=== PATIENT | female | born 1940 | race Caucasian/White ===

== ENCOUNTER 2022-07-25 11:08 | Inpatient (IN) | payer MEDICARE ==
[2022-07-23 11:20] VITALS: BMI 24.2
[~2022-07-25 11:08] MED LIST: ACETAMINOPHEN TAB 500 MG TAB PO PRN; DEXAMETHASONE SOD PHOSPHATE 10 MG/ML 1 ML VIAL IV PRN; DOCUSATE 100 MG CAP PO PRN; FAMOTIDINE 20 MG/2 ML VIAL IVP PRN; HYDROmorphone 0.5 MG/0.5 ML SYRINGE IVP PRN; KETOROLAC 15 MG/ML 1 ML VIAL IVP PRN; LIDOCAINE 1% (10MG/ML) FOR IV START INTRADERMA PRN; ONDANSETRON 4 MG/2 ML VIAL IVP PRN; TRANEXAMIC ACID IN NACL,ISO-OS 1,000 MG in SALINE 1 100ML.BAG IV PRN; TRANEXAMIC ACID IN NACL,ISO-OS 1,000 MG in SALINE 1 100ML.BAG IVPB PRN; oxyCODONE ER 10 MG TAB.ER.12H PO PRN
[2022-07-25] MEDS: LACTATED RINGERS 1,000 ML IV SCH ×2 (12:22→21:31)
[2022-07-25 12:28] LABS: Glucose,Whole Blood 115 mg/dL (70-110)
[2022-07-25] MEDS ORDERED: MIDAZOLAM 2 MG/2 ML VIAL IVP ONE (12:44)
[2022-07-25] MEDS ORDERED: fentaNYL (PF) 50 MCG/ML 2 ML AMP IVP ONE (12:44)
[2022-07-25] MEDS ORDERED: ONDANSETRON 4 MG/2 ML VIAL ONE (13:10)
[2022-07-25] MEDS ORDERED: LIDOCAINE 2% INJ 20 MG/ML (2 ML VIAL) ONE (13:39)
[2022-07-25] MEDS ORDERED: PROPOFOL 10 MG/ML 20 ML VIAL IV ONE (13:39)
[2022-07-25] MEDS ORDERED: ROCURONIUM 10 MG/ML (5 ML VIAL) IV ONE (13:39)
[2022-07-25] MEDS ORDERED: NEOSTIGMINE 1 MG/ML 10 ML VIAL ONE (13:39)
[2022-07-25] MEDS ORDERED: ROPIVACAINE 5 MG/ML 30 ML VIAL ONE (13:39)
[2022-07-25] MEDS ORDERED: HYDROmorphone (PF) 1 MG/ML ONE (13:39)
[2022-07-25] MEDS ORDERED: fentaNYL (PF) 50 MCG/ML 2 ML AMP ONE (13:39)
[2022-07-25] MEDS ORDERED: SODIUM CHLORIDE 0.9% (PF) 10 ML VIAL ONE (13:39)
[2022-07-25] MEDS ORDERED: ePHEDrine 50 MG/ML 1 ML VIAL ONE (13:39)
[2022-07-25] MEDS ORDERED: GLYCOPYRROLATE 0.2 MG/ML 2 ML VIAL ONE (13:39)
[2022-07-25] MEDS ORDERED: SUCCINYLCHOLINE CHLORIDE 200 MG/10 ML VIAL IV ONE (13:39)
[2022-07-25] MEDS: ROPIVACAINE 246.25 MG, EPINEPHrine 0.5 MG, KETOROLAC (30 mg/mL) 30 MG, cloNIDine HCL/PF... MISCELLANE PRN ×10 (14:18→15:24)
--- NOTE | 2022-07-25 14:19 | P.ANPRN ---
Procedure Note - Anesthesia - Nerve Block Performed Right Doroteo Time Out Performed: Yes (12:44) Date of Procedure: 07/25/22 Procedure Start Time: :44 Procedure Stop Time: 12:49 Location of Patient: PreOp Indication: Acute Post-Operative Pain, Requested by Surgeon (Dr Todd) Sedation Type: Sedate with meaningful contact maintained Preparation: Sterile Prep Position: Supine Catheter: None Needle Types: Pajunk Needle Gauge: 21 Ultrasound used to visualize needle placement: Yes Ultrasound used to observe medication spread: Yes Injectate: 0.5% Ropivacaine (see comment for volume) (20cc + 5cc PF normal saline) Pain Paresthesia on Injection Noted: No Resistance on Injection: Normal Events: Uneventful and Well Tolerated
[2022-07-25] MEDS ORDERED: LACTATED RINGERS 1,000 ML IV ONE ×2 (14:30)
--- NOTE | 2022-07-25 16:10 | XR ---
Intraoperative/procedural fluoroscopic services were provided for right total hip arthroplasty. Total fluoroscopy time is 25.8 seconds with a total of 6 submitted images to PACS. Total DAP 0.7091 Gycm2. Please see the operative note for further details.
[2022-07-25] MEDS ORDERED: ONDANSETRON 4 MG/2 ML VIAL IVP PRN (16:11)
[2022-07-25] MEDS ORDERED: hydrOXYzine pamoate 25 MG CAP PO PRN (16:11)
[2022-07-25] MEDS ORDERED: HYDROcodone/APAP 5-325MG 1 EACH TAB PO PRN (16:11)
[2022-07-25] MEDS ORDERED: NALOXONE 0.4 MG/ML 1 ML VIAL IV PRN (16:11)
[2022-07-25] MEDS ORDERED: HYDROmorphone 0.5 MG/0.5 ML SYRINGE IVP PRN ×3 (16:11)
--- NOTE | 2022-07-25 16:12 | P.OP ---
Date of Procedure: 07/25/22 Preoperative Diagnosis: 1. Severe right hip osteoarthritis Postoperative Diagnosis: Same Procedure(s) Performed: Right direct anterior total hip arthroplasty Implants: 1. Hibbs Trident II Acetabular Cup, Size #48 2. Steve Accolade C Size #5 Femoral Stem, Standard Offset 3. Biolox delta femoral head, 36 mm, - 2.5 neck Anesthesia: GETA, regional Surgeon: Dae Todd Template Fitter #1: Jessie Aviles Estimated Blood Loss (ml): 500 IV fluids (ml): 1,200 Pathology: none sent Condition: stable Disposition: PACU Indications for Procedure: I had a long discussion with the patient in the office on the potential risks and complications of an elective total hip replacement through a direct anterior approach. Risks discussed include, but are certainly not limited to, risks from anesthesia, superficial infection requiring local wound care or antibiotics, deep philippe-prosthetic joint infection and the treatment required to eradicate infection, intraoperative fracture, postoperative periprosthetic fracture, damage to local blood vessels or nerves particularly the lateral femoral cutaneous nerve, delayed wound healing requiring local wound care or possibly surgical debridement, hip dislocation, leg length discrepancy, soft tissue irritation around the total hip implant such as iliopsoas tendinitis or trochanteric bursitis, wear and osteolysis from the implants, squeaking or audible noises, groin pain, thigh pain, heterotopic ossification, stiffness, aseptic loosening of the implants, dissatisfaction with surgical outcome, need for revision surgery, DVT, PE, swelling of the operative extremity, acute coronary event, stroke, failure to thrive, and possibly loss of life or limb. The patient understands that while these are the most common complications after an elective hip replacement there are certainly other less common complications possible. They were given ample time to ask questions regarding the potential complications of a hip replacement. Following our discussion the patient provided their verbal and written consent to go forward with an elective total hip replacement. Operative Findings: Severe right hip arthritis Description of Procedure: The patient was identified in the preoperative holding area and the correct hip was marked with my initials. I reviewed the procedure and consent with the patient. All of their questions were answered. The patient was then brought back into the operating room by anesthesia. While on the [facility] anesthesia was administered by the anesthesia team. Preoperative antibiotics and tranexamic acid were also given. After the patient was under anesthesia I examined their ankles to determine their preoperative leg length discrepancy. The skin over the anterior aspect of the hip was shaved to remove hair over the site of planned incision. Both feet and ankles were padded with webril and boots for the [place] were applied. The patient was then carefully transferred onto the [place] table. A perineal post was immediately placed. The arms were placed on arm holders and were well-padded. Both boots were secured to the spars on the [place] table. The patient was positioned so that the pelvis was centered over the post. Nonsterile drapes were applied. A timeout was performed identifying the correct patient, operative extremity, and procedure. At this point fluoroscopy was brought in to take preoperative images of the pelvis and operative hip. Using the standing AP pelvis from the office as a template, a comparable image was obtained with fluoroscopy. A metallic bar was used to create a bi-ischial line for use as a reference to leg length adjustments during the procedure. Global offset was also measured on both the operative and nonoperative leg. Fluoroscopy was then brought out and a pre-scrub using a chlorhexidine scrub brush was performed. The operative limb was then prepped and draped in the standard sterile fashion. An anterior longitudinal incision was made lateral and distal to the ASIS. The skin and subcutaneous tissues were incised sharply. The underlying tensor fascia was identified and incised in its midportion. The fascia was dissected free from the underlying muscle and the muscle belly was retracted. A blunt tipped cobra retractor was placed over the superior neck under the muscle fibers of the gluteus minimus. The deep enveloping fascia of the tensor was incised. The anterior leash of vessels were then identified and cauterized. The fascia between the rectus and the capsule was then incised and the pre-capsular fat was excised. A second Cobra was placed inferior to the neck. The interval between the rectus and iliocapsularis and the hip capsule was developed and a retractor was placed carefully over the anterior rim of the acetabulum. A T-shaped anterior capsulotomy was performed. The superior capsular leaflet was left in place in the inferior capsular flap was excised. The Cobra retractors were placed intracapsularly. We then made a femoral neck osteotomy according to preoperative and intraoperative templating and confirmed the level of the osteotomy using fluoroscopic imaging. The femoral head was removed, passed off to the back table, and sized. The superior capsular flap was excised. Retractors were placed circumferentially exposing the acetabulum. We then circumferentially debrided the acetabulum free of labrum and osteophytes. The pulvinar was removed to fully visualize the cotyloid fossa. We then sequentially reamed to achieve peripheral fit and excellent bleeding subchondral bone. The socket was thoroughly irrigated. The acetabular component was impacted into the appropriate position using fluoroscopy to guide version, inclination, and depth of insertion taking care to have a comparable image of the AP pelvis to the standing image taken in the office. An excellent press-fit was achieved and final position was confirmed using fluoroscopy. The press fit was augmented with bony cancellus dome screws. The liner was then impacted into the socket. Attention was then turned to the femur. The remnant dorsal lateral capsule was excised. The short external rotators were visible and protected. A bone hook was used to confirm appropriate translation of the trochanter away from the acetabulum. The leg was then extended and adducted and the bone hook was used to elevate the femur for broaching. On inspection of the patient's proximal femur, they appeared to have poor bone quality so I elected to proceed with cemented fixation of the femoral component. A box osteotome and blunt tipped canal sound was then utilized to gain access to the femoral canal. We then sequentially broached the femur in appropriate anteversion until torsional stability was achieved and the implant was felt to have reached the appropriate size to allow trialing. The neck cut was brought flush to the trial broach with a calcar planar. A trial neck and head were then placed onto the broach and the hip was atraumatically reduced under direct visualization. External rotation to 90 was performed to assess stability. Fluoroscopy was brought in. An AP and lateral fluoroscopic image of the proximal femur was obtained to assess position and fill of the trial broach. An AP of the pelvis was then obtained and matched to the preoperative image taken. A bi-ischial bar was then placed and measurements were taken to assess changes in length and offset. The hip was then carefully dislocated, the proximal femur was exposed, and the trial implants were removed. The proximal femur was then prepared for cementing. The canal was thoroughly irrigated with pulsatile lavage to remove blood and marrow contents. A cement restrictor was placed to a depth just distal to the tip of the final implant. Epinephrine-soaked gauze was then packed into the proximal femur. 2 bags of cement were then mixed using a centrifuge and placed into a cement gun. Anesthesia was notified that cementing was about to commence to make sure the patient was appropriately ventilated and hydrated. Once the cement had reached appropriate consistency, the cement gun was used to fill the canal in a retrograde fashion starting at the restrictor. Cement was then pressurized into the canal with a blue tipped painter foreman. The stem was then carefully introduced into the cement taking care to guide the implant into appropriate version. The stem was held in position until the cement had fully set. All extra cement was removed while the cement was hardening. The trunnion was cleansed and the final head was tapped into place to engage the Levy taper. The acetabulum was irrigated and visualized to be free of debris. The hip was carefully reduced. Stability was checked clinically with external rotation to 90 and there was no evidence of instability. Final fluoroscopic images were taken. The wound was then thoroughly irrigated with Irricept and allowed to soak for 3 minutes. 3 L of sterile saline was irrigated through the wound using pulsatile lavage. Local anesthetic cocktail was injected into the soft tissues around the surgical field. A deep drain was placed. The wound was then closed in layers. A sterile dressing was placed over the surgical incision and drain site. The drapes were taken down and the patient was carefully transferred off of the [place] table. Following removal of the boots the leg lengths felt acceptable. The patient was then taken to recovery room having tolerated the procedure well. Jessie Aviles PA-C was required as a skilled malt specifications control assistant for patient positioning, surgical exposure, retraction, placement of implants, and closure of the surgical wound. PLAN: The patient can weight-bear as tolerated on the operative extremity. 2 doses of postoperative antibiotics. DVT prophylaxis with aspirin 81 mg twice a day based on preoperative risk stratification. Physical therapy for gait training. Discontinue drain postoperative day #1 if output is less than 100 mL per shift.
[2022-07-25 17:31] LABS: Glucose,Whole Blood 202 mg/dL (70-110)
[2022-07-25] MEDS: ASPIRIN 81 MG PO SCH (20:19)
[2022-07-25] MEDS: SENNOSIDES-DOCUSATE SODIUM 1 EACH TAB PO SCH (20:19)
[2022-07-25 20:53] LABS: Glucose,Whole Blood 227 mg/dL (70-110)
[2022-07-26] MEDS: LACTATED RINGERS 1,000 ML IV SCH ×4 (01:30→23:23)
[2022-07-26 06:18] LABS: Glucose,Whole Blood 213 mg/dL (70-110)
[2022-07-26] MEDS: HYDROcodone/APAP 5-325MG 1 EACH TAB PO PRN ×2 (06:31→14:18)
[2022-07-26] MEDS: ASPIRIN 81 MG PO SCH ×2 (07:32→21:05)
[2022-07-26] MEDS ORDERED: DEXTROSE 50% SYRINGE 50 ML IVP PRN ×2 (07:40)
[2022-07-26 08:19] LABS: African American GFR (CKD) >90 (>60 ml/min/1.73 sqM); Anion Gap 12 mmol/L; Blood Urea Nitrogen 19 mg/dL (7-17); Calcium 8.5 mg/dL (8.4-10.2); Carbon Dioxide 23 mmol/L (22-30); Chloride 102 mmol/L (98-107); Glucose 202 mg/dL (74-99); Non-African American GFR(CKD) 80 (>60 ml/min/1.73 sqM); Sodium 137 mmol/L (137-145)
[2022-07-26] MEDS: POTASSIUM CHLORIDE ER 10 MEQ TAB.ER.PRT PO SCH ×2 (08:33→21:05)
[2022-07-26] MEDS: FAMOTIDINE 20 MG TAB PO SCH (08:33)
[2022-07-26 11:08] LABS: Basophils # (A) 0.03 X 10*3/uL (0.00-0.10); Basophils % (A) 0.2 %; Eosinophils # (A) 0 X 10*3/uL (0.04-0.35); Eosinophils % (A) 0 %; HCT 33.3 % (37.2-46.3); HGB 10.7 g/dL (12.0-15.0); Immature Grans, Automated 0.4 %; Lymphocytes # (A) 0.81 X 10*3/uL (0.90-5.00); Lymphocytes % (A) 6.1 %; MCH 30.4 pg (27.0-32.0); MCHC 32.1 g/dL (32.0-37.0); MCV 94.6 fL (80.0-97.0); Mean Platelet Volume 10.7 fL (9.5-12.2); Monocytes # (A) 0.96 X 10*3/uL (0.20-1.00); Monocytes % (A) 7.2 %; NRBC Per 100 WBC 0 /100 WBCS (0.0-0.0); Neutrophils % (A) 86.1 %; Platelet Count 278 X 10*3/uL (140-440); RBC 3.52 X 10*6/uL (4.10-5.20); RDW 13.2 % (11.5-14.5); WBC 13.36 X 10*3/uL (4.50-10.00)
[2022-07-26 11:40] LABS: Glucose,Whole Blood 152 mg/dL (70-110)
--- NOTE | 2022-07-26 13:08 | P.CONS ---
History of Present Illness - Reason for Consult Consult date: 07/26/22 - History of Present Illness This is an 82 year old female with medical history of hypertension, arthritis, myocardial infarction and heart catheterization with stenting. Patient underwent an elective right total hip arthroplasty with direct anterior approach secondary to severe right hip osteoarthritis. Patient is evaluated on the medical floor postoperative day #1. Blood pressure on the lower side at 95/58 at the lowest postoperative and has received IV fluids overnight with lactacted ringers at 100ml/hr. Blood pressure has improved to 120/66 this morning and recommending to continue holding patients home dose of amlodipine. Blood glucose has been in the 200s this hospitalization patient does not appear to be on any diabetic medications outpatient. Patient reports no history of diabetes and states they just told her due to the elevated blood sugars. There is no hemoglobin A1C available for review patient has been started on sliding scale insulin while inpatient and an A1C has been ordered. Patient is currently pending evaluation by physical therapy at this time. Likely will need subacute rehab. REVIEW OF SYSTEMS: CONSTITUTIONAL: No fever, no malaise, no fatigue. HEENT: No recent visual problems or hearing problems. Denied any sore throat. CARDIOVASCULAR: No chest pain, orthopnea, PND, no palpitations, no syncope. PULMONARY: No shortness of breath, no cough, no hemoptysis. GASTROINTESTINAL: No diarrhea, no nausea, no vomiting, no abdominal pain. NEUROLOGICAL: No headaches, no weakness, no numbness. HEMATOLOGICAL: Denies any bleeding or petechiae. GENITOURINARY: Denies any burning micturition, frequency, or urgency. MUSCULOSKELETAL/RHEUMATOLOGICAL: Denies any joint pain, swelling, or any muscle pain. ENDOCRINE: Denies any polyuria or polydipsia. The rest of the 14-point review of systems is negative. PHYSICAL EXAMINATION: GENERAL: The patient is alert and oriented x3, not in any acute distress. Well developed, well nourished. HEENT: Pupils are round and equally reacting to light. EOMI. No scleral icterus. No conjunctival pallor. Normocephalic, atraumatic. No pharyngeal erythema. No thyromegaly. CARDIOVASCULAR: S1 and S2 present. No murmurs, rubs, or gallops. PULMONARY: Chest is clear to auscultation, no wheezing or crackles. ABDOMEN: Soft, nontender, nondistended, normoactive bowel sounds. No palpable organomegaly. MUSCULOSKELETAL: No joint swelling or deformity. EXTREMITIES: No cyanosis, clubbing, or pedal edema. Post surgical right hip. dressing intact. NEUROLOGICAL: Gross neurological examination did not reveal any focal deficits. SKIN: No rashes. Assessment and Plan Hyperglycemia patient has been started on sliding scale insulin currently and he moglobin a1c is pending patient does not appear to be on any diabetic medication at home. History of hypertension currently low/normal and recommend to continue holding patients home medication amlodipine Hx of rheumatoid arthritis Severe osteoarthritis patient is postoperative day #1 right total hip arthroplasty History of myocardial infarction with prior cardiac stenting GI prophylaxis DVT prophylaxis as per primary Full Code Plan Patient likely will need to discharge on oral medication for the elevated blood glucose. Pending an A1C level, additionally amlodipine remains on hold. Continue IV fluids and recommending decreasing dose due to history of DC and stenting, there is no echocardiogram available for review patient does not have history of heart failure. Pending PT evaluation. DVT prophylaxis per orthopedic recommendations patient has been started on aspirin 81 mg BID. Recommend to continue bowel regimen and incentive spirometer 10 x an hour while awake. Thank you for this consultation. The impression and plan of care has been dictated by Mercedes Garcia Nurse Practitioner as directed. Dr. Juanito MD I have performed a history and physical examination and medical decision making of this patient, discussed the same with the dictator, and agree with the dictators assessment and plan as written, documented as a scribe. Based on total visit time, I have performed more than 50% of this visit. Past Medical History Past Medical History: Diabetes Mellitus, Hypertension, Myocardial Infarction (DC), Osteoarthritis (OA), Rheumatoid Arthritis (RA) Additional Past Medical History / Comment(s): BORDERLINE DM-DIET CONTROLLED. DOUNBLE VISION (HAD SHINGLES ON FACE AND AFFECTED EYES AND EARS). BLADDER PROLAPSE, URINARY INCONTINENCE-USES BRIEF Last Myocardial Infarction Date:: ABOUT 2018 History of Any Multi-Drug Resistant Organisms: None Reported Past Surgical History: Appendectomy, Heart Catheterization With Stent, Hysterectomy Additional Past Surgical History / Comment(s): SUZI. CATARACTS REMOVED. MULTIPLE EYE SURGERIES A CHILD Past Anesthesia/Blood Transfusion Reactions: No Reported Reaction Date of Last Stent Placement:: ABOUT 2018 Past Psychological History: No Psychological Hx Reported Smoking Status: Never smoker Past Alcohol Use History: None Reported Past Drug Use History: None Reported - Past Family History Mother Additional Family Medical History / Comment(s): AT 62 Son(s) Family Medical History: Rheumatoid Arthritis (RA) Medications and Allergies Home Medications Medication Instructions Recorded Confirmed Type Aspirin [Adult Low Dose Aspirin EC] 81 mg PO DAILY 07/23/22 07/23/22 History Ibuprofen 800 mg PO BID 07/23/22 07/23/22 History Potassium Chloride [K-Tab ER] 10 meq PO BID 07/23/22 07/25/22 History amLODIPine [Norvasc] 5 mg PO DAILY 07/23/22 07/25/22 History traMADol HCL 50 mg PO DAILY PRN 07/23/22 07/25/22 History HYDROcodone/APAP 5-325MG [[place] 1 - 2 tab PO Q6HR PRN 7 Days #32 07/26/22 Rx 5-325] tab Allergies Allergy/AdvReac Type Severity Reaction Status Date / Time adhesive Allergy BLISTERS Verified 07/25/22 11:58 iodine Allergy BLISTERS Verified 07/25/22 11:58 Penicillins Allergy Unknown Verified 07/25/22 11:58 mannitol [From Reclast] AdvReac POTASSIUM Verified 07/25/22 11:58 LOSS water for injection,sterile AdvReac POTASSIUM Verified 07/25/22 11:58 [From Reclast] LOSS zoledronic acid AdvReac POTASSIUM Verified 07/25/22 11:58 [From Reclast] LOSS Physical Exam Vitals: Vital Signs Temp Pulse Resp BP Pulse Ox 07/26/22 07:06 98.2 F 82 18 120/66 94 L 07/26/22 02:00 97.6 F 82 17 95/58 92 L 07/25/22 19:25 84 18 109/68 93 L 07/25/22 19:10 80 101/54 92 L 07/25/22 18:55 86 104/60 92 L 07/25/22 18:40 80 102/66 92 L 07/25/22 18:25 67 97/60 92 L 07/25/22 18:10 83 112/69 92 L 07/25/22 17:55 88 110/61 95 07/25/22 17:40 76 103/66 95 07/25/22 17:38 98.7 F 67 16 105/66 93 L 07/25/22 17:25 71 105/66 93 L 07/25/22 17:00 62 12 109/53 94 L 07/25/22 16:45 67 12 107/55 98 07/25/22 16:30 64 12 108/61 98 07/25/22 16:15 64 12 104/57 98 07/25/22 16:03 96.8 F L 83 12 137/66 98 07/25/22 12:50 59 L 16 115/61 98 07/25/22 12:00 97.9 F 18 157/67 99 Intake and Output 07/25/22 07/26/22 07/26/22 22:59 06:59 14:59 Intake Total 50 118 Output Total 500 60 Balance -450 -60 118 Intake: IV 50 Oral 118 Output: Drainage 60 Right Hip 60 Estimated Blood Loss 500 Other: # Voids 0 2 Weight 67 kg Results CBC & Chem 7: 07/26/22 06:33 07/26/22 06:33 Labs: Abnormal Lab Results - Last 24 Hours (Table) 07/25/22 07/25/22 07/25/22 Range/Units 12:13 17:31 20:51 BUN (7-17) mg/dL Glucose (74-99) mg/dL POC Glucose (mg/dL) 115 H 202 H 227 H (70-110) mg/dL 07/26/22 07/26/22 Range/Units 06:17 06:33 BUN 19 H (7-17) mg/dL Glucose 202 H (74-99) mg/dL POC Glucose (mg/dL) 213 H (70-110) mg/dL Assessment and Plan Time with Patient: Less than 30
[2022-07-26] MEDS ORDERED: IBUPROFEN 800 MG TAB PO PRN (15:11)
--- NOTE | 2022-07-26 15:16 | P.PN ---
Subjective Progress Note Date: 07/26/22 This patient is an 82- year old female who is status-post right direct anterior total hip arthroplasty on 07/25/22. Today is post-operative day #1. She is examined bedside. Patient states her pain is well controlled at this time. She is complaining of mild muscle cramps. Otherwise she is doing well. Vital signs stable. Objective - Vital Signs Vital signs: Vital Signs Temp 98.4 F 07/26/22 13:30 Pulse 78 07/26/22 13:30 Resp 19 07/26/22 13:30 BP 99/57 07/26/22 13:30 Pulse Ox 97 07/26/22 13:30 FiO2 Intake & Output 07/25/22 07/26/22 07/26/22 18:59 06:59 18:59 Intake Total 1800 236 Output Total 500 60 Balance 1300 -60 236 Weight 67 kg Intake: IV 1800 Oral 236 Output: Drainage 60 Right Hip 60 Estimated Blood Loss 500 Other: # Voids 0 2 - Exam On examination, patient is sitting up in bed in no apparent distress. She is alert and orientated x3. On inspection of the right hip, there is a clean, dry, intact surgical dressing in place. Hemovac drain removed bedside during exam. Mild swelling of the thigh, thigh is soft and compressible. Motor and sensory function intact RLE. Femoral nerve function intact. RLE warm and well perfused. - Labs CBC & Chem 7: 07/26/22 06:33 07/26/22 06:33 Labs: Abnormal Lab Results - Last 24 Hours (Table) 07/25/22 07/25/22 07/26/22 Range/Units 17:31 20:51 06:17 WBC (4.50-10.00) X 10*3/uL RBC (4.10-5.20) X 10*6/uL Hgb (12.0-15.0) g/dL Hct (37.2-46.3) % Immature Gran # (0.00-0.04) X 10*3/uL Neutrophils # (1.80-7.70) X 10*3/uL Lymphocytes # (0.90-5.00) X 10*3/uL Eosinophils # (0.04-0.35) X 10*3/uL BUN (7-17) mg/dL Glucose (74-99) mg/dL POC Glucose (mg/dL) 202 H 227 H 213 H (70-110) mg/dL 07/26/22 07/26/22 07/26/22 Range/Units 06:33 06:33 11:38 WBC 13.36 H (4.50-10.00) X 10*3/uL RBC 3.52 L (4.10-5.20) X 10*6/uL Hgb 10.7 L (12.0-15.0) g/dL Hct 33.3 L (37.2-46.3) % Immature Gran # 0.06 H (0.00-0.04) X 10*3/uL Neutrophils # 11.50 H (1.80-7.70) X 10*3/uL Lymphocytes # 0.81 L (0.90-5.00) X 10*3/uL Eosinophils # 0 L (0.04-0.35) X 10*3/uL BUN 19 H (7-17) mg/dL Glucose 202 H (74-99) mg/dL POC Glucose (mg/dL) 152 H (70-110) mg/dL Assessment and Plan Assessment: Status-post right direct anterior total hip arthroplasty on 07/25/22. Post-op day #1. Plan: - Weight bear to tolerance on operative extremity with a walker. - Physical therapy for gait and balance training. - Keep operative dressing in place. - Pain medication as needed. Motrin 800mg re-started. Flexeril added for muscle cramps. - 2 doses of post-op IV antibiotics complete. Patient will be started on doxycycline 100mg BID for wound healing prophylaxis. - Internal medicine for philippe-op medical management. - Case management consulted for discharge planning. Anticipate discharge to rehab when auth obtained.
[2022-07-26] MEDS: INSULIN ASPART (NovoLOG) 100 UNIT/ML VIAL SQ SCH ×3 (15:17→21:04)
[2022-07-26] MEDS: CYCLOBENZAPRINE 5 MG TAB PO PRN (15:20)
[2022-07-26 17:05] LABS: Glucose,Whole Blood 160 mg/dL (70-110)
[2022-07-26 21:03] LABS: Glucose,Whole Blood 121 mg/dL (70-110)
[2022-07-26] MEDS: SENNOSIDES-DOCUSATE SODIUM 1 EACH TAB PO SCH (21:05)
[2022-07-26] MEDS: DOXYCYCLINE 100 MG CAP PO SCH (21:05)
[2022-07-27] MEDS: CYCLOBENZAPRINE 5 MG TAB PO PRN ×3 (05:15→20:53)
[2022-07-27] MEDS: HYDROcodone/APAP 5-325MG 1 EACH TAB PO PRN ×3 (05:16→20:53)
[2022-07-27 06:36] LABS: Glucose,Whole Blood 145 mg/dL (70-110)
[2022-07-27] MEDS: INSULIN ASPART (NovoLOG) 100 UNIT/ML VIAL SQ SCH ×4 (07:29→20:53)
[2022-07-27] MEDS: ASPIRIN 81 MG PO SCH ×2 (08:16→20:53)
[2022-07-27] MEDS: POTASSIUM CHLORIDE ER 10 MEQ TAB.ER.PRT PO SCH ×2 (08:16→20:53)
[2022-07-27] MEDS: FAMOTIDINE 20 MG TAB PO SCH (08:16)
[2022-07-27] MEDS: DOXYCYCLINE 100 MG CAP PO SCH ×2 (08:16→20:52)
[2022-07-27] MEDS: LACTATED RINGERS 1,000 ML IV SCH ×3 (09:24→18:18)
[2022-07-27 11:39] LABS: Glucose,Whole Blood 136 mg/dL (70-110)
--- NOTE | 2022-07-27 14:56 | P.PN ---
Subjective Progress Note Date: 07/27/22 This patient is an 82- year old female who is status-post right direct anterior total hip arthroplasty on 07/25/22. Today is post-operative day #2. She is examined bedside. Per nursing patient was up to the bathroom herself today and felt a pop in her hip, with an increase of pain. Patient states she did not fall. Her muscle cramps have improved. No additional complaints. She is awaiting auth for rehab. Objective - Vital Signs Vital signs: Vital Signs Temp 99.6 F 07/27/22 13:45 Pulse 91 07/27/22 13:45 Resp 16 07/27/22 13:45 BP 99/64 07/27/22 13:45 Pulse Ox 91 L 07/27/22 13:45 FiO2 Intake & Output 07/26/22 07/27/22 07/27/22 18:59 06:59 18:59 Intake Total 236 Balance 236 Intake: Oral 236 Other: # Voids 2 4 - Exam On examination, patient is sitting up in bed in no apparent distress. She is alert and orientated x3. On inspection of the right hip, there is a clean, dry, intact surgical dressing in place. Mild swelling of the thigh, thigh is soft and compressible. Motor and sensory function intact RLE. Femoral nerve function in tact. RLE warm and well perfused. - Labs CBC & Chem 7: 07/26/22 06:33 07/26/22 06:33 Labs: Abnormal Lab Results - Last 24 Hours (Table) 07/26/22 07/26/22 07/26/22 Range/Units 06:33 17:04 21:02 POC Glucose (mg/dL) 160 H 121 H (70-110) mg/dL Hemoglobin A1c 7.1 H (0.0-6.0) % 07/27/22 07/27/22 Range/Units 06:34 11:37 POC Glucose (mg/dL) 145 H 136 H (70-110) mg/dL Hemoglobin A1c (0.0-6.0) % Assessment and Plan Assessment: Status-post right direct anterior total hip arthroplasty on 07/25/22. Post-op day #2. Plan: - Weight bear to tolerance on operative extremity with a walker. - Physical therapy for gait and balance training. - Keep operative dressing in place. - Pain medication as needed. Flexeril as needed for muscle cramps. - Continue doxycycline 100mg BID for wound healing prophylaxis. - Internal medicine for philippe-op medical management. - Case management consulted for discharge planning. Anticipate discharge to rehab when auth obtained.
--- NOTE | 2022-07-27 15:55 | P.PN ---
Subjective Progress Note Date: 07/27/22 This is an 82 year old female with medical history of hypertension, arthritis, myocardial infarction and heart catheterization with stenting. Patient underwent an elective right total hip arthroplasty with direct anterior approach secondary to severe right hip osteoarthritis. Patient is evaluated on the medical floor postoperative day #1. Blood pressure on the lower side at 95/58 at the lowest postoperative and has received IV fluids overnight with lactacted ringers at 100ml/hr. Blood pressure has improved to 120/66 this morning and recommending to continue holding patients home dose of amlodipine. Blood glucose has been in the 200s this hospitalization patient does not appear to be on any diabetic medications outpatient. Patient reports no history of diabetes and states they just told her due to the elevated blood sugars. There is no hemoglobin A1C available for review patient has been started on sliding scale insulin while inpatient and an A1C has been ordered. Patient is currently pending evaluation by physical therapy at this time. Likely will need subacute rehab. 07/27/2022 Patient is evaluated on medical floor sitting up in chair does not report much pain today to the right hip. Using only oral pain medications. Having some muscle cramping of the right thigh on muscle relaxers. No acute complaints no shortness of breath. Postoperative day #1 total right hip arthroplasty. A1C f ound to be 7.1 discussed with patient and recommending starting oral metformin on discharge. Patient remains on IV fluids and blood pressure 99/60s. Antihypertensives remain on hold. Review of Systems Constitutional: Denied any fatigue denied any fever. Cardio vascular: denied any chest pain, palpitations Gastrointestinal: denied any nausea, vomiting, diarrhea Pulmonary: Denied any shortness of breath cough Neurologic denied any new focal deficits All inpatient medications were reviewed and appropriate changes in these medications as dictated in the interval history and assessment and plan. PHYSICAL EXAMINATION: GENERAL: The patient is alert and oriented x3, not in any acute distress. Well developed, well nourished. HEENT: Pupils are round and equally reacting to light. EOMI. No scleral icterus. No conjunctival pallor. Normocephalic, atraumatic. No pharyngeal erythema. No thyromegaly. CARDIOVASCULAR: S1 and S2 present. No murmurs, rubs, or gallops. PULMONARY: Chest is clear to auscultation, no wheezing or crackles. ABDOMEN: Soft, nontender, nondistended, normoactive bowel sounds. No palpable organomegaly. MUSCULOSKELETAL: No joint swelling or deformity. EXTREMITIES: No cyanosis, clubbing, or pedal edema. Post surgical right hip. dressing intact. There is smaller dressing to the right of main incision with some shadowing. Area is soft palpable post tib and dorsalis pedis pulse. NEUROLOGICAL: Gross neurological examination did not reveal any focal deficits. SKIN: No rashes. Assessment and Plan Diabetes mellitus type 2 with A1C of 7.1 recently diagnosed not on any medications at home currently. History of hypertension currently low/normal and recommend to continue holding patients home medication amlodipine Hx of rheumatoid arthritis Severe osteoarthritis patient is postoperative day #2 right total hip arthroplasty History of myocardial infarction with prior cardiac stenting GI prophylaxis DVT prophylaxis as per primary Full Code Plan Patient likely will need to discharge on oral medication for the elevated blood glucose. Amlodipine remains on hold. Continue IV fluids. DVT prophylaxis per orthopedic recommendations patient has been started on aspirin 81 mg BID. Recommend to continue bowel regimen and incentive spirometer 10 x an hour while awake. Patient is on oral doxycycline for wound prophylaxis by primary services. Patient requires 3 overnight hospital stays before can discharge to subacute rehab which will happen on saturday. Thank you for this consultation. The impression and plan of care has been dictated by Mercedes Garcia Nurse Practitioner as directed. Dr. Juanito MD I have performed a history and physical examination and medical decision making of this patient, discussed the same with the dictator, and agree with the dictators assessment and plan as written, documented as a scribe. Based on total visit time, I have performed more than 50% of this visit. Objective - Vital Signs Vital signs: Vital Signs Temp 99.6 F 07/27/22 13:45 Pulse 91 07/27/22 13:45 Resp 16 07/27/22 13:45 BP 99/64 07/27/22 13:45 Pulse Ox 91 L 07/27/22 13:45 FiO2 Intake & Output 07/26/22 07/27/22 07/27/22 18:59 06:59 18:59 Intake Total 236 Balance 236 Intake: Oral 236 Other: # Voids 2 4 - Labs CBC & Chem 7: 07/26/22 06:33 07/26/22 06:33 Labs: Abnormal Lab Results - Last 24 Hours (Table) 07/26/22 07/26/22 07/26/22 Range/Units 06:33 17:04 21:02 POC Glucose (mg/dL) 160 H 121 H (70-110) mg/dL Hemoglobin A1c 7.1 H (0.0-6.0) % 07/27/22 07/27/22 Range/Units 06:34 11:37 POC Glucose (mg/dL) 145 H 136 H (70-110) mg/dL Hemoglobin A1c (0.0-6.0) % Assessment and Plan Time with Patient: Less than 30
[2022-07-27 16:15] LABS: Glucose,Whole Blood 163 mg/dL (70-110)
[2022-07-27 19:53] LABS: Glucose,Whole Blood 225 mg/dL (70-110)
[2022-07-27] MEDS: SENNOSIDES-DOCUSATE SODIUM 1 EACH TAB PO SCH (20:53)
[2022-07-28 06:03] LABS: Glucose,Whole Blood 172 mg/dL (70-110)
[2022-07-28] MEDS: LACTATED RINGERS 1,000 ML IV SCH ×3 (06:03→11:26)
[2022-07-28] MEDS: INSULIN ASPART (NovoLOG) 100 UNIT/ML VIAL SQ SCH ×4 (06:07→21:25)
--- NOTE | 2022-07-28 08:58 | P.PN ---
Subjective Progress Note Date: 07/28/22 The patient is resting comfortably in her bed. Her pain is improved since yesterday and she states that she was able to get up and walk after being evaluated by myself with an increasing hip pain. She continued to have spasms in her leg but states these were present before surgery. Objective - Vital Signs Vital signs: Vital Signs Temp 98.2 F 07/28/22 02:00 Pulse 84 07/28/22 02:00 Resp 17 07/28/22 02:00 BP 125/73 07/28/22 02:00 Pulse Ox 92 L 07/28/22 02:00 FiO2 Intake & Output 07/27/22 07/28/22 07/28/22 18:59 06:59 18:59 Other: # Voids 2 3 - Exam The patient is resting comfortably in her bed. She is in no apparent distress. On inspection her leg lengths appear even and there is no deformity the right leg. Her surgical dressing is intact, but there is a moderate amount of drainage into the drain sponge. This was changed and there was no active drainage from the drain site. Her thigh is soft. Femoral nerve function is intact. Distally she is able to actively plantar flex and dorsiflex her ankle and her toes. - Labs CBC & Chem 7: 07/26/22 06:33 07/26/22 06:33 Labs: Abnormal Lab Results - Last 24 Hours (Table) 07/27/22 07/27/22 07/27/22 Range/Units 11:37 16:14 19:52 POC Glucose (mg/dL) 136 H 163 H 225 H (70-110) mg/dL 07/28/22 Range/Units 06:01 POC Glucose (mg/dL) 172 H (70-110) mg/dL Assessment and Plan Assessment: Postoperative day #3 status post right direct anterior total hip replacement, doing well Plan: Continue treatment as outlined previously. The patient will continue to work on mobilization out of bed with therapy and into a chair. She should use a walker at all times. Discharge planning is in process likely on Saturday she will be able to discharge to SNF.
[2022-07-28] MEDS: HYDROcodone/APAP 5-325MG 1 EACH TAB PO PRN ×2 (09:11→20:54)
[2022-07-28] MEDS: CYCLOBENZAPRINE 5 MG TAB PO PRN ×2 (09:12→20:54)
[2022-07-28] MEDS: DOXYCYCLINE 100 MG CAP PO SCH ×2 (09:12→20:54)
[2022-07-28] MEDS: POTASSIUM CHLORIDE ER 10 MEQ TAB.ER.PRT PO SCH ×2 (09:12→20:54)
[2022-07-28] MEDS: FAMOTIDINE 20 MG TAB PO SCH (09:12)
[2022-07-28] MEDS: ASPIRIN 81 MG PO SCH ×2 (09:12→20:54)
[2022-07-28 09:16] LABS: Basophils # (A) 0.08 X 10*3/uL (0.00-0.10); Eosinophils # (A) 0.26 X 10*3/uL (0.04-0.35); Eosinophils % (A) 3.3 %; HCT 30.1 % (37.2-46.3); HGB 9.6 g/dL (12.0-15.0); Immature Grans, Automated 0.6 %; Lymphocytes # (A) 1.13 X 10*3/uL (0.90-5.00); Lymphocytes % (A) 14.5 %; MCH 30.3 pg (27.0-32.0); MCHC 31.9 g/dL (32.0-37.0); Mean Platelet Volume 10.6 fL (9.5-12.2); Monocytes # (A) 0.81 X 10*3/uL (0.20-1.00); Monocytes % (A) 10.4 %; NRBC Per 100 WBC 0 /100 WBCS (0.0-0.0); Neutrophils # (A) 5.47 X 10*3/uL (1.80-7.70); Neutrophils % (A) 70.2 %; Platelet Count 211 X 10*3/uL (140-440); RBC 3.17 X 10*6/uL (4.10-5.20); RDW 13.4 % (11.5-14.5)
[2022-07-28] MEDS ORDERED: polyethylene glycoL 3350 17 GM POWD.PACK PO PRN (10:17)
--- NOTE | 2022-07-28 10:23 | P.PN ---
Subjective Progress Note Date: 07/28/22 This is an 82 year old female with medical history of hypertension, arthritis, myocardial infarction and heart catheterization with stenting. Patient underwent an elective right total hip arthroplasty with direct anterior approach secondary to severe right hip osteoarthritis. Patient is evaluated on the medical floor postoperative day #1. Blood pressure on the lower side at 95/58 at the lowest postoperative and has received IV fluids overnight with lactacted ringers at 100ml/hr. Blood pressure has improved to 120/66 this morning and recommending to continue holding patients home dose of amlodipine. Blood glucose has been in the 200s this hospitalization patient does not appear to be on any diabetic medications outpatient. Patient reports no history of diabetes and states they just told her due to the elevated blood sugars. There is no hemoglobin A1C available for review patient has been started on sliding scale insulin while inpatient and an A1C has been ordered. Patient is currently pending evaluation by physical therapy at this time. Likely will need subacute rehab. 07/27/2022 Patient is evaluated on medical floor sitting up in chair does not report much pain today to the right hip. Using only oral pain medications. Having some muscle cramping of the right thigh on muscle relaxers. No acute complaints no shortness of breath. Postoperative day #2 total right hip arthroplasty. A1C f ound to be 7.1 discussed with patient and recommending starting oral metformin on discharge. Patient remains on IV fluids and blood pressure 99/60s. Antihypertensives remain on hold. 07/28/2022 Patient is evaluated today on the medical floor postoperative day #3 total right hip arthroplasty. Patient will be started on metformin for the hyperglycemia and will continue on discharge. Has not had a BM in a few days and will given a dose of lactulose today. Blood pressures are improved, pending discharge for saturday to rehab. Review of Systems Constitutional: Denied any fatigue denied any fever. Cardio vascular: denied any chest pain, palpitations Gastrointestinal: denied any nausea, vomiting, diarrhea reports constipation. Pulmonary: Denied any shortness of breath cough Neurologic denied any new focal deficits All inpatient medications were reviewed and appropriate changes in these medi cations as dictated in the interval history and assessment and plan. PHYSICAL EXAMINATION: GENERAL: The patient is alert and oriented x3, not in any acute distress. Well developed, well nourished. HEENT: Pupils are round and equally reacting to light. EOMI. No scleral icterus. No conjunctival pallor. Normocephalic, atraumatic. No pharyngeal erythema. No thyromegaly. CARDIOVASCULAR: S1 and S2 present. No murmurs, rubs, or gallops. PULMONARY: Chest is clear to auscultation, no wheezing or crackles. ABDOMEN: Soft, nontender, nondistended, normoactive bowel sounds. No palpable organomegaly. MUSCULOSKELETAL: No joint swelling or deformity. EXTREMITIES: No cyanosis, clubbing, or pedal edema. Post surgical right hip. dressing intact. There is smaller dressing to the right of main incision with some shadowing. Area is soft palpable post tib and dorsalis pedis pulse. NEUROLOGICAL: Gross neurological examination did not reveal any focal deficits. SKIN: No rashes. Assessment and Plan Diabetes mellitus type 2 with A1C of 7.1 recently diagnosed History of hypertension BP low postoperative and now improved. Hx of rheumatoid arthritis Severe osteoarthritis patient is postoperative day #3 right total hip arthroplasty History of myocardial infarction with prior cardiac stenting GI prophylaxis DVT prophylaxis as per primary Full Code Plan IV fluids decreased can resume amlopine. Started on metformin. Lactulose x 1 for BM. DVT prophylaxis per orthopedic recommendations patient has been started on aspirin 81 mg BID. Recommend to continue bowel regimen and incentive spirometer 10 x an hour while awake. Patient is on oral doxycycline for wound prophylaxis by primary services. Patient requires 3 overnight hospital stays before can discharge to subacute rehab which will happen on saturday. Thank you for this consultation. The impression and plan of care has been dictated by Mercedes Garcia Nurse Practitioner as directed. Dr. Brett MD I have performed a history and physical examination and medical decision making of this patient, discussed the same with the dictator, and agree with the dictators assessment and plan as written, documented as a scribe. Based on total visit time, I have performed more than 50% of this visit. Objective - Vital Signs Vital signs: Vital Signs Temp 98.7 F 07/28/22 08:00 Pulse 82 07/28/22 08:00 Resp 18 07/28/22 08:00 BP 132/73 07/28/22 08:00 Pulse Ox 92 L 07/28/22 08:00 FiO2 Intake & Output 07/27/22 07/28/22 07/28/22 18:59 06:59 18:59 Other: # Voids 2 3 - Labs CBC & Chem 7: 07/28/22 06:40 07/26/22 06:33 Labs: Abnormal Lab Results - Last 24 Hours (Table) 07/27/22 07/27/22 07/27/22 Range/Units 11:37 16:14 19:52 RBC (4.10-5.20) X 10*6/uL Hgb (12.0-15.0) g/dL Hct (37.2-46.3) % MCHC (32.0-37.0) g/dL Immature Gran # (0.00-0.04) X 10*3/uL POC Glucose (mg/dL) 136 H 163 H 225 H (70-110) mg/dL 07/28/22 07/28/22 Range/Units 06:01 06:40 RBC 3.17 L (4.10-5.20) X 10*6/uL Hgb 9.6 L (12.0-15.0) g/dL Hct 30.1 L (37.2-46.3) % MCHC 31.9 L (32.0-37.0) g/dL Immature Gran # 0.05 H (0.00-0.04) X 10*3/uL POC Glucose (mg/dL) 172 H (70-110) mg/dL Assessment and Plan Time with Patient: Less than 30
[2022-07-28] MEDS ORDERED: LACTULOSE 20 GM/30 ML CUP PO ONE (10:45)
[2022-07-28 11:19] LABS: Glucose,Whole Blood 162 mg/dL (70-110)
[2022-07-28 16:51] LABS: Glucose,Whole Blood 122 mg/dL (70-110)
[2022-07-28] MEDS: metFORMIN 500 MG TAB PO SCH (17:29)
[2022-07-28] MEDS: SENNOSIDES-DOCUSATE SODIUM 1 EACH TAB PO SCH (20:54)
[2022-07-28 21:15] LABS: Glucose,Whole Blood 139 mg/dL (70-110)
[2022-07-29] MEDS: LACTATED RINGERS 1,000 ML IV SCH (05:01)
[2022-07-29 06:09] LABS: Glucose,Whole Blood 119 mg/dL (70-110)
--- NOTE | 2022-07-29 06:25 | P.PN ---
Subjective Patient doing well this morning. Her pain is improved, but she continues to have spasms. She says the spasms were present prior to surgery. Per nursing, she did better yesterday and was able to mobilize with therapy. Objective - Vital Signs Vital signs: Vital Signs Temp 98.6 F 07/29/22 01:21 Pulse 83 07/29/22 01:21 Resp 18 07/29/22 01:21 BP 121/69 07/29/22 01:21 Pulse Ox 93 L 07/29/22 01:21 FiO2 Intake & Output 07/28/22 07/28/22 07/29/22 06:59 18:59 06:59 Intake Total 180 Output Total 1000 Balance -820 Intake: Oral 180 Output: Urine 1000 Other: # Voids 3 1 3 # Bowel Movements 1 - Exam Patient is resting comfortably in her bed. She is alert and able to answer questions. Focused exam of the right hip was conducted. Her surgical dressings are intact with no drainage. Her thigh is soft. Femoral nerve function is intact. She is able to actively plantarflex her ankle and her toes. - Labs CBC & Chem 7: 07/28/22 06:40 07/26/22 06:33 Labs: Abnormal Lab Results - Last 24 Hours (Table) 07/28/22 07/28/22 07/28/22 Range/Units 06:40 11:18 16:49 RBC 3.17 L (4.10-5.20) X 10*6/uL Hgb 9.6 L (12.0-15.0) g/dL Hct 30.1 L (37.2-46.3) % MCHC 31.9 L (32.0-37.0) g/dL Immature Gran # 0.05 H (0.00-0.04) X 10*3/uL POC Glucose (mg/dL) 162 H 122 H (70-110) mg/dL 07/28/22 07/29/22 Range/Units 21:13 06:08 RBC (4.10-5.20) X 10*6/uL Hgb (12.0-15.0) g/dL Hct (37.2-46.3) % MCHC (32.0-37.0) g/dL Immature Gran # (0.00-0.04) X 10*3/uL POC Glucose (mg/dL) 139 H 119 H (70-110) mg/dL Assessment and Plan Assessment: POD #4 s/p right direct anterior total hip replacement Plan: Continue treatment as previously documented. Will discontinue her IV as it is bothering her and she no longer needs it. Continue muscle relaxants and local mo dalities for her muscle spasms. Likely discharge tomorrow.
[2022-07-29] MEDS: INSULIN ASPART (NovoLOG) 100 UNIT/ML VIAL SQ SCH ×4 (06:27→20:50)
[2022-07-29] MEDS: metFORMIN 500 MG TAB PO SCH ×2 (06:29→17:08)
[2022-07-29] MEDS: amLODIPine 5 MG TAB PO SCH (08:11)
[2022-07-29] MEDS: DOXYCYCLINE 100 MG CAP PO SCH ×2 (08:11→20:50)
[2022-07-29] MEDS: POTASSIUM CHLORIDE ER 10 MEQ TAB.ER.PRT PO SCH ×2 (08:11→20:50)
[2022-07-29] MEDS: FAMOTIDINE 20 MG TAB PO SCH (08:11)
[2022-07-29] MEDS: ASPIRIN 81 MG PO SCH ×2 (08:11→20:50)
[2022-07-29] MEDS: CYCLOBENZAPRINE 5 MG TAB PO PRN ×2 (08:13→20:50)
--- NOTE | 2022-07-29 09:38 | P.PN ---
Subjective Progress Note Date: 07/29/22 This is an 82 year old female with medical history of hypertension, arthritis, myocardial infarction and heart catheterization with stenting. Patient underwent an elective right total hip arthroplasty with direct anterior approach secondary to severe right hip osteoarthritis. Patient is evaluated on the medical floor postoperative day #1. Blood pressure on the lower side at 95/58 at the lowest postoperative and has received IV fluids overnight with lactacted ringers at 100ml/hr. Blood pressure has improved to 120/66 this morning and recommending to continue holding patients home dose of amlodipine. Blood glucose has been in the 200s this hospitalization patient does not appear to be on any diabetic medications outpatient. Patient reports no history of diabetes and states they just told her due to the elevated blood sugars. There is no hemoglobin A1C available for review patient has been started on sliding scale insulin while inpatient and an A1C has been ordered. Patient is currently pending evaluation by physical therapy at this time. Likely will need subacute rehab. 07/27/2022 Patient is evaluated on medical floor sitting up in chair does not report much pain today to the right hip. Using only oral pain medications. Having some muscle cramping of the right thigh on muscle relaxers. No acute complaints no shortness of breath. Postoperative day #2 total right hip arthroplasty. A1C f ound to be 7.1 discussed with patient and recommending starting oral metformin on discharge. Patient remains on IV fluids and blood pressure 99/60s. Antihypertensives remain on hold. 07/28/2022 Patient is evaluated today on the medical floor postoperative day #3 total right hip arthroplasty. Patient will be started on metformin for the hyperglycemia and will continue on discharge. Has not had a BM in a few days and will given a dose of lactulose today. Blood pressures are improved, pending discharge for saturday to rehab. 07/29/2022 Patient is evaluated today on the medical floor patient is postoperative day #4 total right hip arthroplasty, patient has been started on metformin. Blood gluc ose has improved. Patient had a bowel movement. Patient will go to subacute rehab on Saturday. Review of Systems Constitutional: Denied any fatigue denied any fever. Cardio vascular: denied any chest pain, palpitations Gastrointestinal: denied any nausea, vomiting, diarrhea Pulmonary: Denied any shortness of breath cough Neurologic denied any new focal deficits All inpatient medications were reviewed and appropriate changes in these medications as dictated in the interval history and assessment and plan. PHYSICAL EXAMINATION: GENERAL: The patient is alert and oriented x3, not in any acute distress. Well developed, well nourished. HEENT: Pupils are round and equally reacting to light. EOMI. No scleral icterus. No conjunctival pallor. Normocephalic, atraumatic. No pharyngeal erythema. No thyromegaly. CARDIOVASCULAR: S1 and S2 present. No murmurs, rubs, or gallops. PULMONARY: Chest is clear to auscultation, no wheezing or crackles. ABDOMEN: Soft, nontender, nondistended, normoactive bowel sounds. No palpable organomegaly. MUSCULOSKELETAL: No joint swelling or deformity. EXTREMITIES: No cyanosis, clubbing, or pedal edema. Post surgical right hip. dressing intact. NEUROLOGICAL: Gross neurological examination did not reveal any focal deficits. SKIN: No rashes. Assessment and Plan Diabetes mellitus type 2 with A1C of 7.1 recently diagnosed History of hypertension BP low postoperative and now improved. Hx of rheumatoid arthritis Severe osteoarthritis patient is postoperative day #4 right total hip arthroplasty History of myocardial infarction with prior cardiac stenting GI prophylaxis DVT prophylaxis as per primary Full Code Plan Continue pain management and bowel regimen, continue to encourage incentive spirometer 10 x an hour. Patient is resumed on amlodipine and started on metformin and will continue on discharge. Subacute rehab on Saturday. The impression and plan of care has been dictated by Mercedes Garcia, Nurse Practitioner as directed. Dr. Brett MD I have performed a history and physical examination and medical decision making of this patient, discussed the same with the dictator, and agree with the d ictators assessment and plan as written, documented as a scribe. Based on total visit time, I have performed more than 50% of this visit. Objective - Vital Signs Vital signs: Vital Signs Temp 99.0 F 07/29/22 07:12 Pulse 84 07/29/22 07:12 Resp 18 07/29/22 07:12 BP 149/81 07/29/22 07:12 Pulse Ox 92 L 07/29/22 07:12 FiO2 Intake & Output 07/28/22 07/29/22 07/29/22 18:59 06:59 18:59 Intake Total 180 Output Total 1000 1 Balance -820 -1 Intake: Oral 180 Output: Urine 1000 1 Other: # Voids 1 3 # Bowel Movements 1 1 - Labs CBC & Chem 7: 05/20/23 06:40 07/26/22 06:33 Labs: Abnormal Lab Results - Last 24 Hours (Table) 07/28/22 07/28/22 07/28/22 Range/Units 11:18 16:49 21:13 POC Glucose (mg/dL) 162 H 122 H 139 H (70-110) mg/dL 07/29/22 Range/Units 06:08 POC Glucose (mg/dL) 119 H (70-110) mg/dL Assessment and Plan Time with Patient: Less than 30
[2022-07-29 11:54] LABS: Glucose,Whole Blood 97 mg/dL (70-110)
[2022-07-29 17:03] LABS: Glucose,Whole Blood 110 mg/dL (70-110)
[2022-07-29 19:48] LABS: Glucose,Whole Blood 157 mg/dL (70-110)
[2022-07-29] MEDS: SENNOSIDES-DOCUSATE SODIUM 1 EACH TAB PO SCH (20:53)
[2022-07-29] MEDS: HYDROcodone/APAP 5-325MG 1 EACH TAB PO PRN (22:08)
[2022-07-30] MEDS: CYCLOBENZAPRINE 5 MG TAB PO PRN ×2 (04:37→12:19)
[2022-07-30] MEDS: HYDROcodone/APAP 5-325MG 1 EACH TAB PO PRN ×2 (04:38→12:20)
[2022-07-30 05:56] LABS: Glucose,Whole Blood 117 mg/dL (70-110)
[2022-07-30] MEDS: INSULIN ASPART (NovoLOG) 100 UNIT/ML VIAL SQ SCH ×2 (06:37→11:23)
[2022-07-30] MEDS: metFORMIN 500 MG TAB PO SCH (06:38)
[2022-07-30 08:01] VITALS: BP 116/69; PULSE 73; RESP 17; TEMP 98.5
[2022-07-30 08:38] LABS: Basophils # (A) 0.11 X 10*3/uL (0.00-0.10); Basophils % (A) 1.5 %; Eosinophils # (A) 0.46 X 10*3/uL (0.04-0.35); Eosinophils % (A) 6.3 %; HCT 29.9 % (37.2-46.3); HGB 9.3 g/dL (12.0-15.0); Immature Grans, Automated 0.6 %; Lymphocytes # (A) 1.38 X 10*3/uL (0.90-5.00); MCH 29.2 pg (27.0-32.0); MCHC 31.1 g/dL (32.0-37.0); Mean Platelet Volume 10.5 fL (9.5-12.2); Monocytes # (A) 0.98 X 10*3/uL (0.20-1.00); Monocytes % (A) 13.5 %; NRBC Per 100 WBC 0 /100 WBCS (0.0-0.0); Neutrophils % (A) 59.1 %; Platelet Count 263 X 10*3/uL (140-440); RBC 3.18 X 10*6/uL (4.10-5.20); RDW 13.1 % (11.5-14.5); WBC 7.27 X 10*3/uL (4.50-10.00)
[2022-07-30] MEDS: amLODIPine 5 MG TAB PO SCH (09:10)
[2022-07-30] MEDS: POTASSIUM CHLORIDE ER 10 MEQ TAB.ER.PRT PO SCH (09:10)
[2022-07-30] MEDS: DOXYCYCLINE 100 MG CAP PO SCH (09:10)
[2022-07-30] MEDS: FAMOTIDINE 20 MG TAB PO SCH (09:10)
[2022-07-30] MEDS: ASPIRIN 81 MG PO SCH (09:10)
--- NOTE | 2022-07-30 10:04 | P.DS ---
Providers Date of admission: 07/26/22 08:41 Expected date of discharge: 07/30/22 Attending physician: Dae Todd Consults: 07/25/22 16:11 Consult Physician Routine Consulting Provider: Lizzy West Consult Reason/Comments: medical management Do you want consulting provider notified?: Yes Primary care physician: Alton Mo MD Hospital Course: This is an 82-year-old female who has been followed in our office by Dr. Todd for continued complaints of right hip pain due to right hip osteoarthritis. Treatment options were discussed, and patient elected to undergo a right direct anterior total hip arthroplasty. Patient was seen pre-operatively by Dr. Du art installer and Glo Quijano NP and cleared for surgery. Patient underwent a right direct anterior total hip arthroplasty on 07/25/[address] Todd. The procedure was performed without complication or sequelae. The patient is doing fairly well postoperatively. Vital signs and labs are stable on postoperative day #5. Patient was examined bedside this morning by Dr. Todd. Patient states she is overall doing well and the pain in her right hip is well-controlled. She has been ambulating with a walker. On examination, the patient is sitting up in bed in no apparent distress. She is alert and orientated 3. On inspection of the right hip, there is a clean, dry, intact surgical dressing in place. Motor and sensory function is intact of the right lower extremity. Femoral nerve function intact. The dorsalis pedis pulse is easily palpable, the right lower extremity is warm and well perfused with brisk capillary refill. Calf is soft and non-tender to palpation. Patient is discharged to subacute rehab today in good condition, pending medical clearance. Patient will follow-up with Dr. Todd in the office in 2 weeks at [facility]. Please see med rec for accurate list of discharge medication. Plan - Discharge Summary Discharge Rx Participant: No New Discharge Prescriptions: New metFORMIN HCL [Glucophage] 500 mg PO BID-W/MEALS tab polyethylene glycoL 3350 [Miralax] 17 gm PO DAILY PRN packet PRN Reason: Constipation Famotidine [Pepcid] 20 mg PO DAILY tab Doxycycline Monohydrate 100 mg PO BID 14 Days #28 cap HYDROcodone/APAP 5-325MG [[facility] 5-325] 1 - 2 tab PO Q6HR PRN 7 Days #32 tab PRN Reason: Pain Aspirin 81 mg PO BID 30 Days #60 tab Docusate [Colace] 100 mg PO BID #60 capsule Omeprazole 40 mg PO DAILY 30 Days #30 cap Continue Potassium Chloride [K-Tab ER] 10 meq PO BID amLODIPine [Norvasc] 5 mg PO DAILY Ibuprofen 800 mg PO BID Discontinued Aspirin [Adult Low Dose Aspirin EC] 81 mg PO DAILY No Action traMADol HCL 50 mg PO DAILY PRN PRN Reason: Pain Discharge Medication List Ibuprofen 800 mg PO BID 07/23/22 [History] Potassium Chloride [K-Tab ER] 10 meq PO BID 07/23/22 [History] amLODIPine [Norvasc] 5 mg PO DAILY 07/23/22 [History] traMADol HCL 50 mg PO DAILY PRN 07/23/22 [History] HYDROcodone/APAP 5-325MG [[facility] 5-325] 1 - 2 tab PO Q6HR PRN 7 Days #32 tab 07/26/22 [Rx] Famotidine [Pepcid] 20 mg PO DAILY tab 07/29/22 [Rx] metFORMIN HCL [Glucophage] 500 mg PO BID-W/MEALS tab 07/29/22 [Rx] polyethylene glycoL 3350 [Miralax] 17 gm PO DAILY PRN packet 07/29/22 [Rx] Aspirin 81 mg PO BID 30 Days #60 tab 07/30/22 [Rx] Docusate [Colace] 100 mg PO BID #60 capsule 07/30/22 [Rx] Doxycycline Monohydrate 100 mg PO BID 14 Days #28 cap 07/30/22 [Rx] Omeprazole 40 mg PO DAILY 30 Days #30 cap 07/30/22 [Rx] Follow up Appointment(s)/Referral(s): Alton Mo MD [Primary Care Provider] - 1 Week Dae Todd MD [Medical Doctor] - 07/31/22 1:35 pm Activity/Diet/Wound Care/Special Instructions: Weight bear to tolerance on operative extremity with a walker. Keep operative dressing in place until follow-up in the office. Do not remove. Call the office if dressing becomes saturated or falls off. May shower over dressing, no soaking. Take pain medications as needed. Take aspirin 81mg twice a day x 4 weeks for blood clot prevention. Take antibiotics as prescribed. Follow-up in the office in two weeks at [facility]. Call the office with any questions or concerns, Discharge Disposition: TRANSFER TO SNF/ECF
[2022-07-30 11:09] LABS: Glucose,Whole Blood 141 mg/dL (70-110)
--- NOTE | 2022-07-31 05:59 | PN ---
PROGRESS NOTE DATE OF SERVICE: 07/30/2022 SUBJECTIVE: This is an 82-year-old woman, who was admitted with diabetes mellitus type 2, also had multiple medical issues. No chest pain. No palpitations. No fever. OBJECTIVE: VITAL SIGNS: Pulse 73, blood pressure 116/60, respirations 17. HEENT: Conjunctivae normal. CARDIOVASCULAR: S1, S2. RESPIRATIONS: Clear to auscultation. ABDOMEN: Soft. NERVOUS SYSTEM: Nonfocal. LABORATORY DATA: Hemoglobin 9.3. ASSESSMENT: 1. Diabetes mellitus, type 2. 2. Hypertension. 3. History of rheumatoid arthritis. 4. Status post total knee arthroplasty. RECOMMENDATIONS AND DISCUSSION: Recommend to continue current medications, continue symptomatic treatment. See orders for further details. We have started the patient on metformin. Monitor blood sugars closely and follow up with primary physician with blood sugars and the rest of the recommendations per Orthopedic Surgery. Further recommendations to follow. MMODL / IJN: [id number] /
== END 2022-07-30 13:47 | DRG 470 ==
LOC: OR 11:08 → 4SSUR 16:09 → OR 07-26 08:41 → 4SSUR 07-26 08:41
PROVIDERS: ADMIT Orthopaedic Surgery; ATTEND Orthopaedic Surgery
PROC: 0SR9049 Replacement of Right Hip Joint with Ceramic on Polyethylene Synthetic Substitute, Cemented, Open Approach (ICD-10-PCS; principal; 2022-07-25 13:00)
DX: M16.11 Unilateral primary osteoarthritis, right hip (principal); E11.65 Type 2 diabetes mellitus with hyperglycemia; M06.9 Rheumatoid arthritis, unspecified; I10 Essential (primary) hypertension; I25.2 Old myocardial infarction; I25.10 Atherosclerotic heart disease of native coronary artery without angina pectoris; E78.00 Pure hypercholesterolemia, unspecified; N39.498 Other specified urinary incontinence; N81.10 Cystocele, unspecified; H91.90 Unspecified hearing loss, unspecified ear; H53.2 Diplopia; Z79.82 Long term (current) use of aspirin; Z79.899 Other long term (current) drug therapy; Z79.1 Long term (current) use of non-steroidal anti-inflammatories (NSAID); Z95.5 Presence of coronary angioplasty implant and graft; Z88.0 Allergy status to penicillin; Z88.8 Allergy status to other drugs, medicaments and biological substances
CPT/HCPCS: 64447; 73501; 80048; 83036; 85025; 86850; 86900; 86901; 88300